=== PATIENT | male | born 1940 | race Caucasian/White ===

== ENCOUNTER → 2017-10-22 | Day surgery (SDC) | payer MEDICARE ==
[~2017-10-22] VITALS: Ht 177.8 cm; Wt 89.1 kg
[~2017-10-22] MED LIST: ACETAMINOPHEN 1000 MG/100 ML 100 ML IV ONE; APIX5TAB PO; ASPI-516 PO; ATROPINE SULFATE 1% OPHT SOLN 2 ML BTL ONE; CARV25TA PO; CHLORHEXIDINE GLUCONATE 2 % 1 PACK (2 CLOTHS) TOPICAL PRN; CLON0.5T PO; DEXAMETHASONE SOD PHOS 4 MG/ML VIAL ONE; DEXTROSE 50% IN WATER 50 ML SYRINGE ONE; DO NOT ADM ANY ANTICOAGULANT DRUGS PRN; DONE5TAB7 PO; EPINEPHrine HCL (1:1000) 1 MG/ML VIAL ONE; FAMOTIDINE 20 MG/2 ML VIAL ONE; FENO50TA PO; FURO1TAB60 PO; FURO40TA PO; GLIM4TAB PO; ISOS20TA2 PO; LACTATED RINGER'S 1000 ML IV PRN; LEVO50TA4 PO; LIDOCAINE HCL 1% PF 5 ML SYRINGE OTHER ONE; METOPROLOL TARTRATE 25 MG TAB PO PRN; MIDAZOLAM HCL 2 MG/2 ML VIAL ONE; ONDANSETRON HCL 4 MG/2 ML VIAL IV PUSH ONE; PHENYLEPH/NS 1000 MCG/10 ML SYR IV ONE; POVIDONE IODINE 5% (ANTISEPSIS KIT) 4 APPLICATIONS EACH NARE PRN; PRAV10TA PO; PROPOFOL 200 MG/20 ML AMP IV ONE; RANI150T PO; SACU1TAB PO; SODIUM CHLORID 0.9% 500 ML IV PRN; TAMS5CAP PO; TOBRAMYCIN/DEXAMETHASONE OPTH OINT 3.5 GM TUBE ONE; TRAD5TAB PO; TRIAMCINOLONE ACETONIDE 40 MG/ML VIAL ONE; ceFAZolin INJ 1,000 MG VIAL ONE; ePHEDrine/NS 25 MG/5 ML SYRINGE IV ONE; oxyCODONE/ACETAMINOPHEN 5 MG/325 MG TAB ONE
[2017-10-22 10:23] LABS: AUTOMATED NEUTROPHIL # 3.8 TH/MM3 (1.8-7.7); BASOPHIL % 0.5 % (0.0-2.0); EOSINOPHIL # 0.1 TH/MM3 (0-0.4); HEMATOCRIT 36.7 % (39.0-51.0); HEMOGLOBIN 12.5 GM/DL (13.0-17.0); LYMPH % 27.9 % (9.0-44.0); LYMPHOCYTE # 1.8 TH/MM3 (1.0-4.8); MEAN CELL VOLUME 93.6 FL (80.0-100.0); MEAN CORPUSCULAR HEMOGLOBIN 31.8 PG (27.0-34.0); MEAN PLATELET VOLUME 8.7 FL (7.0-11.0); MONO % 10.7 % (0.0-8.0); MONOCYTE # 0.7 TH/MM3 (0-0.9); NEUT % 58.9 % (16.0-70.0); PLATELET COUNT 166 TH/MM3 (150-450); RED BLOOD COUNT 3.92 MIL/MM3 (4.50-5.90); RED CELL DISTRIBUTION WIDTH 13.8 % (11.6-17.2); WHITE BLOOD COUNT 6.4 TH/MM3 (4.0-11.0)
[2017-10-22] MEDS: CYCLOPENTOLATE HCL 1% OPHT SOLN 2 ML BTL RIGHT EYE SCH ×4 (10:55→11:40)
[2017-10-22] MEDS: PHENYLEPHRINE HCL 2.5% OPTH SOLN 2 ML BTL RIGHT EYE SCH ×4 (10:55→11:40)
[2017-10-22] MEDS: TROPICAMIDE 1% OPHT SOLN 15 ML BTL RIGHT EYE SCH ×4 (10:55→11:40)
[2017-10-22] MEDS: ATROPINE SULFATE 1% OPHT SOLN 5 ML BTL RIGHT EYE SCH ×4 (10:55→11:40)
[2017-10-22 15:50] VITALS: BP 108/68; PULSE 59; RESP 18; TEMP 97.6; O2SAT 96
--- NOTE | 2017-10-22 16:04 | EKG ---
Date Performed: 10/22/2017 Time Performed: 09:49:19 PTAGE: 77 years EKG: ELECTRONIC ATRIAL PACEMAKER INTRAVENTRICULAR CONDUCTION DELAY INFERIOR MYOCARDIAL INFARCTIO N , PROBABLY OLD ABNORMAL ECG NO PREVIOUS TRACING DOCTOR: Antonella Munguia Interpretating Date/Time 10/22/2017 16:02:54
--- NOTE | 2017-10-23 22:21 | MP ---
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 PROCEDURE Trans pars plana vitrectomy with internal drainage of subretinal fluid using Perfluoron liquid, endolaser photocoagulation and gas fluid exchange right eye. SURGEON Dr. Anuel Reid ANESTHESIA General laryngeal mask anesthesia INDICATIONS Mr. Pablo is a 77 year old gentleman who presented on 10/21/2017 with decreased vision and was found to have a near total rhegmatogenous retinal detachment involving the macula. The retinal break was found to be at about 11 to 11:30 o'clock. The situation was explained to the patient and a trans pars plana vitrectomy with laser and gas fluid exchange was recommended. The risks and benefits of surgery including advancement of his already present cataracts were discussed with the patient and he wished to proceed. Informed consent was obtained and no guarantee was made as to visual outcome. PROCEDURE IN DETAIL He was brought to [facility] operating room [facility] the [facility]. Appropriate anesthesia monitoring devices were applied and he was placed under general anesthesia using a laryngeal mask. The right eye was identified as the operative site and then prepped and draped in usual and sterile fashion. A lid speculum was placed. The microscope was brought around and adjusted. At this point, an appropriate time-out was performed with the surgical team agreeing to the planned procedure and operative site. Using the Juan Manuel 23-gauge vitrectomy system, the trocar cannulas were placed 4 mm posterior to the limbus after first displacing the conjunctiva and with a beveled entrance through the sclera. The first one was placed at approximately 8:45 o'clock and verified in the posterior chamber. An infusion cannula was affixed to it and turned on. Two additional trocar cannulas were placed in similar fashion at 10 and 2 o'clock. A small amount of Kenalog was injected into the eye to help with visualization of the vitreous. Using the flat contact lens, a core vitrectomy was carried out. A small amount of Perfluoron liquid was injected into the eye to stabilize the posterior pole while the remaining vitreous was dissected to the vitreous base. Then additional Perfluoron was used to flatten the retina followed by endolaser photocoagulation around the inferior periphery and around the retinal break superiorly. The Perfluoron was exchanged out for air and then the air was exchanged out for a 15% mixture of C3F8. The trocar cannulas were removed one by one with tamponade of the site with a cotton swab leaving the eye with good pressure and no visible air leaks. Atropine drops were placed on the cornea followed by subconjunctival injections of Ancef 125 mg in 0.5 ml and Decadron 2 mg in 0.5 ml. The lid speculum was removed and the patient was undraped. TobraDex ointment was placed on the cornea and then the right eye was patched and shielded. The patient had the laryngeal mass removed in the room and was returned to recovery in good condition on his left side. When awake and alert, he will be asked to begin face-down positioning. MD DMITRIY Torrez/ /8:53 AM /10:08 PM
== END | disposition home or self-care (01) ==
LOC: HSDC 09:16
PROVIDERS: ATTEND Ophthalmology
DX: H33.011 Retinal detachment with single break, right eye (principal); E11.9 Type 2 diabetes mellitus without complications; E03.9 Hypothyroidism, unspecified; E78.00 Pure hypercholesterolemia, unspecified; I25.10 Atherosclerotic heart disease of native coronary artery without angina pectoris; Z95.810 Presence of automatic (implantable) cardiac defibrillator
CPT/HCPCS: 00145; 67108; 85025; 93005; J0131; J0171; J0690; J1100; J2250; J2370; J2405; J3010; J3301; J7120

== ENCOUNTER → 2017-12-31 | Day surgery (SDC) | payer MEDICARE ==
[~2017-12-31] VITALS: Ht 177.8 cm; Wt 91.5 kg
[~2017-12-31] MED LIST changes: -ACETAMINOPHEN 1000 MG/100 ML 100 ML IV ONE; +ACETAMINOPHEN 500 MG CPLT PO PRN; +BALANCED SALT SOLN OPHT IRRIG 15 ML BTL ONE; +BUPIVACAINE HCL PF 0.75% 10 ML VIAL ONE; -FAMOTIDINE 20 MG/2 ML VIAL ONE; -FURO40TA PO; +INSULIN HUMAN REGULAR 1,000 UNITS/10 ML VIAL SQ PRN; -LIDOCAINE HCL 1% PF 5 ML SYRINGE OTHER ONE; -MIDAZOLAM HCL 2 MG/2 ML VIAL ONE; -ONDANSETRON HCL 4 MG/2 ML VIAL IV PUSH ONE; -PHENYLEPH/NS 1000 MCG/10 ML SYR IV ONE; -PROPOFOL 200 MG/20 ML AMP IV ONE; +TOBRAMYCIN 0.3%/DEXAMETHASONE 0.1% OPHT SUSP 5 ML BTL ONE; -TRIAMCINOLONE ACETONIDE 40 MG/ML VIAL ONE; -ePHEDrine/NS 25 MG/5 ML SYRINGE IV ONE; +fentaNYL CITRATE 250 MCG/5 ML AMP ONE; -oxyCODONE/ACETAMINOPHEN 5 MG/325 MG TAB ONE; +oxyCODONE/ACETAMINOPHEN 5 MG/325 MG TAB PO PRN
[2017-12-31] MEDS: CYCLOPENTOLATE HCL 1% OPHT SOLN 2 ML BTL RIGHT EYE SCH ×4 (11:20→12:15)
[2017-12-31] MEDS: PHENYLEPHRINE HCL 2.5% OPTH SOLN 2 ML BTL RIGHT EYE SCH ×4 (11:20→12:15)
[2017-12-31] MEDS: ATROPINE SULFATE 1% OPHT SOLN 5 ML BTL RIGHT EYE SCH ×4 (11:20→12:15)
[2017-12-31] MEDS: TROPICAMIDE 1% OPHT SOLN 15 ML BTL RIGHT EYE SCH ×4 (11:20→12:15)
[2017-12-31 11:25] LABS: AUTOMATED NEUTROPHIL # 4.8 TH/MM3 (1.8-7.7); BASOPHIL % 0.3 % (0.0-2.0); EOSINOPHIL # 0.1 TH/MM3 (0-0.4); EOSINOPHIL % 1.2 % (0.0-4.0); HEMATOCRIT 41.6 % (39.0-51.0); LYMPH % 19.8 % (9.0-44.0); LYMPHOCYTE # 1.4 TH/MM3 (1.0-4.8); MEAN CELL VOLUME 92.4 FL (80.0-100.0); MEAN CORPUSCULAR HEMOGLOBIN 31.1 PG (27.0-34.0); MEAN CORPUSCULAR HGB CONC 33.7 % (32.0-36.0); MEAN PLATELET VOLUME 9.7 FL (7.0-11.0); MONO % 10.8 % (0.0-8.0); MONOCYTE # 0.8 TH/MM3 (0-0.9); NEUT % 67.9 % (16.0-70.0); PLATELET COUNT 198 TH/MM3 (150-450); RED BLOOD COUNT 4.51 MIL/MM3 (4.50-5.90); RED CELL DISTRIBUTION WIDTH 13.2 % (11.6-17.2); WHITE BLOOD COUNT 7.1 TH/MM3 (4.0-11.0)
--- NOTE | 2017-12-31 17:15 | MP ---
cc: Aria Haro MD DATE OF OPERATION: 12/31/2017 DATE OF PROCEDURE: 12/31/2017 PREOPERATIVE DIAGNOSIS: Recurrent rhegmatogenous retinal detachment, right eye. POSTOPERATIVE DIAGNOSIS: Recurrent rhegmatogenous retinal detachment, right eye. PROCEDURE PERFORMED: trans pars plana vitrectomy with scleral buckle procedure, endolaser photocoagulation and gas fluid exchange, right eye. SURGEON: Aria Haro MD ANESTHESIA: General endotracheal anesthesia. INDICATION FOR PROCEDURE: Mr. Pablo is a 77-year-old gentleman who had a primary rhegmatogenous retinal detachment repaired initially in October, approximately 69-70 days ago, with a vitrectomy and endolaser with gas-fluid exchange. He was doing well until approximately 12/17/2017 when he called and started seeing a shadow in the nasal visual field and was found to have a recurrent retinal detachment from approximately 2 o'clock down to 6:30 o'clock. There were 2 small breaks at about 7 o'clock. It was recommended he undergo a repeat procedure with possible scleral buckle in addition to the vitrectomy and gas fluid exchange. He wished to proceed. Informed consent was obtained. No guarantee was made as to visual outcome. DESCRIPTION OF PROCEDURE: He was brought to [facility] operating room 1, placed on the eye operating gurney. Appropriate anesthesia monitoring devices were applied, and he was placed under laryngeal mask. The right eye was identified as the operative site prepped and draped in the usual sterile fashion. A lid speculum was placed. At this a timely an appropriate timeout was called with the surgical team approving of the surgical site and planned procedure. The conjunctiva was then opened up with Joel scissors and conjunctival forceps 360 degrees at the limbus. A radial relaxing incision was done at 4 o'clock. All 4 quadrants were opened with blunt dissection using the Joel scissors. The recti muscles were then hooked on muscle hooks and transferred onto 4-0 black silk ties. The sclera was inspected using the fork retractor and was found to be of good thickness in all 4 quadrants. Using a caliper to measure approximately 12-13 mm posterior to the limbus, 5-0 Dacron mattress sutures were placed in between the recti muscles in all 4 quadrants. A 41 band was then weaved through the mattress sutures and under the recti muscles and secured loosely with a 70 sleeve in the superior temporal quadrant. Next, a 23-gauge 3 port vitrectomy was carried out removing any residual vitreous and flattening the retina under Perfluoron fluid. Using the endolaser probe with the power of 300 milliwatts and 0.1 second exposure, the flattened retina temporally was treated in the periphery and midperiphery, after which the buckle was tightened down and secured in all 4 quadrants. The Perfluoron was then removed with the soft tipped linear extrusion needle and then the fluid was removed and exchanged for air and the air exchanged for a 15% mixture of C3F8 gas. This left the retina attached. A total of 436 endolaser spots were placed with the power of 300 milliwatts and 0.1 second exposure. The cannulas were removed 1 by 1 and those sites closed with interrupted 7-0 Vicryl suture. The orbit was irrigated with a mixture of 0.75% Marcaine and tobramycin and then the conjunctiva was brought back up and closed using interrupted 7-0 Vicryl sutures along the radial relaxing incision. The eye was left with good pressure and no visible leaks. Subconjunctival injections of Ancef 125 mg in 0.5 mL and Decadron 2 mg in 0.5 mL were given at separate sites. The lid speculum was removed and the patient was undraped. TobraDex ointment were placed on the cornea and then the right eye was patched and shielded. The patient had the laryngeal mask removed in the room and was returned to recovery in good condition, lying on his left side. When awake and alert, he will begin face down positioning. MD DMITRIY Torrez/SUNIL , 04:18 PM , 05:13 PM
[2017-12-31 18:00] VITALS: BP 142/78; PULSE 64; RESP 16; TEMP 98.9; O2SAT 96
== END | disposition home or self-care (01) ==
LOC: HSDC 09:25
PROVIDERS: ATTEND Ophthalmology
DX: H33.001 Unspecified retinal detachment with retinal break, right eye (principal)
CPT/HCPCS: 00145; 67108; 85025; J0171; J0690; J1100; J3010; J7120